=== PATIENT | male | born 1975 | race Caucasian/White ===

== ENCOUNTER 2017-09-12 20:13 | Inpatient (IN) | payer OTHER ==
[2017-09-12] MEDS: NS + KCL 20 MEQ 1,000 ML IV ×2 (03:45→22:08)
[2017-09-12] MEDS: DEXTROSE 50% 50 ML SYRINGE IV ×2 (20:43→23:13)
[2017-09-12 21:04] LABS: ADD MAN DIFF? NO
[2017-09-12 21:05] LABS: BASOPHILS % 0.1 % (0.0-2.0); EOSINOPHILS # 0.1 10^3/ul (0.0-0.5); EOSINOPHILS % 0.6 % (0.0-7.0); HEMATOCRIT 42.1 % (42.0-52.0); HEMOGLOBIN 14.4 g/dl (14.0-18.0); LYMPHOCYTES # 3.1 10^3/ul (0.8-2.9); LYMPHOCYTES % 36.7 % (15.0-51.0); MEAN CORPUSCULAR HEMOGLOBIN 28.2 pg (29.0-33.0); MEAN CORPUSCULAR HGB CONC 34.2 g/dl (32.0-37.0); MEAN CORPUSCULAR VOLUME 82.5 fl (82.0-101.0); MEAN PLATELET VOLUME 10.4 fl (7.4-10.4); MONOCYTE # 0.3 10^3/ul (0.3-0.9); MONOCYTES % 3.6 % (0.0-11.0); NEUTROPHIL # 4.9 10^3/ul (1.6-7.5); NEUTROPHILS % 58.8 % (39.0-77.0); PLATELET COUNT 170 10^3/UL (140-415); RED CELL DISTRIBUTION WIDTH 13.3 % (11.5-14.5)
[2017-09-12 21:05] LABS: WHITE BLOOD COUNT 8.4 10^3/ul (4.8-10.8)
[2017-09-12 21:13] LABS: ALANINE AMINOTRANSFERASE 37 IU/L (13-69); ALBUMIN 5.3 g/dl (3.3-4.9); ALKALINE PHOSPHATASE 109 IU/L (42-121); ANION GAP 18 (8-16); ASPARTATE AMINO TRANSFERASE 23 IU/L (15-46); BILIRUBIN,INDIRECT 0.2 mg/dl (0-1.1); BILIRUBIN,TOTAL 0.2 mg/dl (0.2-1.3); BLOOD UREA NITROGEN 15 mg/dl (7-20); CALCIUM 9.7 mg/dl (8.4-10.2); CARBON DIOXIDE 23 mmol/L (21-31); CHLORIDE 109 mmol/L (97-110); CREATININE 0.97 mg/dl (0.61-1.24); GLUCOSE 56 mg/dl (70-220); SODIUM 147 mmol/L (135-144); TOTAL PROTEIN 8.6 g/dl (6.1-8.1)
[2017-09-12] MEDS: HYDROmorphONE 1 MG/ML SYG IV (21:14)
[2017-09-12] MEDS: SOD CHLORIDE 0.9% 1,000 ML IV (21:14)
[2017-09-12] MEDS: ONDANSETRON 4 MG INJ IV (21:14)
[2017-09-12 21:16] LABS: POTASSIUM 2.9 mmol/L (3.5-5.1)
[2017-09-12 21:37] LABS: LIPASE 193 U/L (23-300)
[2017-09-12] MEDS: FENTAnyl 50 MCG/ML VIAL IV (23:08)
[2017-09-12 23:55] LABS: ETHANOL < 10.0 mg/dl
[2017-09-12] MEDS: DEXTROSE 10% 1,000 ML IV (23:59)
[2017-09-13 00:41] LABS: URINE PH (Dip) POC 5.5 (5.0-8.5)
[2017-09-13 00:41] LABS: URINE BLOOD (Dip) POC Trace-lysed (NEGATIVE); URINE KETONES (Dip) POC Negative (NEGATIVE); URINE LEUKOCYTE EST (Dip) POC Negative (NEGATIVE); URINE NITRITE (Dip) POC Negative (NEGATIVE); URINE TOTAL PROTEIN POC Negative (NEGATIVE)
[2017-09-13] MEDS: HYDROCODONE/APAP (5/325) TAB PO (01:00)
[2017-09-13 01:23] LABS: ADD UMIC YES; UR ASCORBIC ACID NEGATIVE (NEGATIVE); UR BILIRUBIN (Dip) NEGATIVE (NEGATIVE); UR BLOOD (Dip) 1+ mg/dL (NEGATIVE); UR CLARITY CLEAR (CLEAR); UR COLOR YELLOW (YELLOW); UR GLUCOSE (Dip) 2+ mg/dL (NEGATIVE); UR KETONES (Dip) NEGATIVE (NEGATIVE); UR LEUKOCYTE ESTERASE (Dip) NEGATIVE Leu/ul (NEGATIVE); UR MUCUS FEW /HPF (NONE SEEN); UR NITRITE (Dip) NEGATIVE (NEGATIVE); UR RBC 1 /HPF (0-5); UR TOTAL PROTEIN (Dip) NEGATIVE (NEGATIVE); UR UROBILINOGEN (Dip) NEGATIVE (NEGATIVE); UR WBC 1 /HPF (0-5)
[2017-09-13] MEDS: NS + KCL 20 MEQ 1,000 ML IV ×12 (01:30→23:30)
[2017-09-13] MEDS: AMLODIPINE 5 MG TAB PO ×2 (02:00→15:38)
[2017-09-13] MEDS ORDERED: ACETAMINOPHEN 325 MG TAB PO (02:00)
[2017-09-13] MEDS ORDERED: DIPHENHYDRAMINE 25 MG CAP PO (02:00)
[2017-09-13] MEDS ORDERED: OCTREOTIDE 50 MCG INJ SC (02:00)
[2017-09-13] MEDS ORDERED: ONDANSETRON 4 MG INJ IV (02:00)
[2017-09-13 02:06] LABS: AMPHETAMINE/METHAMPHETAMINE NEGATIVE (NEGATIVE); BARBITURATES NEGATIVE (NEGATIVE); BENZODIAZEPINES NEGATIVE (NEGATIVE); CANNABINOIDS NEGATIVE (NEGATIVE); COCAINE NEGATIVE (NEGATIVE); OPIATES POSITIVE (NEGATIVE)
[2017-09-13] MEDS ORDERED: OCTREOTIDE 100 MCG INJ SC (02:30)
[2017-09-13] MEDS: HYDROmorphONE 1 MG/ML SYG IV ×10 (02:51→23:16)
[2017-09-13] MEDS: OCTREOTIDE 100 MCG INJ SC ×3 (03:53→18:00)
[2017-09-13] MEDS: POTASSIUM CHLORIDE (SR) 20 MEQ TAB PO ×3 (03:53→06:00)
[2017-09-13] MEDS: SOD CHLORIDE 0.9% 1,000 ML IV (03:54)
[2017-09-13] MEDS: DEXTROSE 10% 1,000 ML IV ×5 (03:55→18:25)
[2017-09-13 05:59] LABS: ADD MAN DIFF? NO
[2017-09-13 06:10] LABS: ABNORMAL IP MESSAGE 1; BASOPHILS % 0.2 % (0.0-2.0); EOSINOPHILS % 0.5 % (0.0-7.0); HEMATOCRIT 38.2 % (42.0-52.0); HEMOGLOBIN 13.1 g/dl (14.0-18.0); LYMPHOCYTES % 24.7 % (15.0-51.0); MEAN CORPUSCULAR HGB CONC 34.3 g/dl (32.0-37.0); MEAN CORPUSCULAR VOLUME 84.5 fl (82.0-101.0); MEAN PLATELET VOLUME 10.7 fl (7.4-10.4); MONOCYTE # 0.3 10^3/ul (0.3-0.9); NEUTROPHIL # 2.7 10^3/ul (1.6-7.5); NEUTROPHILS % 67.4 % (39.0-77.0); PLATELET COUNT 85 10^3/UL (140-415); POSITIVE DIFF @See below; RED BLOOD COUNT 4.52 10^6/ul (4.70-6.10); RED CELL DISTRIBUTION WIDTH 13.3 % (11.5-14.5)
[2017-09-13 06:49] LABS: ALANINE AMINOTRANSFERASE 28 IU/L (13-69); ALBUMIN 3.2 g/dl (3.3-4.9); ALBUMIN/GLOBULIN RATIO 1.14; ALKALINE PHOSPHATASE 71 IU/L (42-121); ANION GAP 11 (8-16); ASPARTATE AMINO TRANSFERASE 13 IU/L (15-46); BILIRUBIN,INDIRECT 0.2 mg/dl (0-1.1); BILIRUBIN,TOTAL 0.2 mg/dl (0.2-1.3); BLOOD UREA NITROGEN 10 mg/dl (7-20); CALCIUM 8.5 mg/dl (8.4-10.2); CARBON DIOXIDE 24 mmol/L (21-31); CHLORIDE 112 mmol/L (97-110); CREATININE 0.81 mg/dl (0.61-1.24); GLUCOSE 85 mg/dl (70-220); SODIUM 143 mmol/L (135-144)
[2017-09-13] MEDS: ENOXAPARIN 40 MG/0.4 ML SYG SC (10:00)
[2017-09-13] MEDS ORDERED: LORAZEPAM 1 MG TAB PO (15:30)
[2017-09-13] MEDS ORDERED: POTASSIUM CHLORIDE 20 MEQ POWDER FOR ORAL SOLN PO ×3 (15:30)
[2017-09-13] MEDS: OXCARBAZEPINE 300 MG TAB PO (20:55)
[2017-09-13] MEDS: QUETIAPINE 100 MG TAB PO (20:55)
[2017-09-13] MEDS: ZOLPIDEM 5 MG TAB PO (23:16)
[2017-09-14] MEDS: NS + KCL 20 MEQ 1,000 ML IV ×4 (01:30→07:54)
[2017-09-14] MEDS: AMLODIPINE 5 MG TAB PO (01:33)
[2017-09-14] MEDS: HYDROmorphONE 1 MG/ML SYG IV ×3 (01:34→09:39)
[2017-09-14] MEDS: OCTREOTIDE 100 MCG INJ SC ×2 (02:00→09:43)
[2017-09-14] MEDS: DEXTROSE 10% 1,000 ML IV ×2 (03:08→10:00)
[2017-09-14] MEDS: INSULIN ASPART [NOVOLOG] 3 ML PEN SC (07:55)
[2017-09-14] MEDS ORDERED: GLUCOSE GEL 15 GRAM TUBE PO ×2 (08:00)
[2017-09-14] MEDS ORDERED: GLUCAGON 1 MG INJ IM (08:00)
[2017-09-14] MEDS ORDERED: DEXTROSE 50% 50 ML SYRINGE IV ×2 (08:00)
[2017-09-14] MEDS ORDERED: GLUCOSE GEL 15 GRAM TUBE BUCCAL (08:00)
[2017-09-14 08:38] LABS: ADD MAN DIFF? NO
[2017-09-14 08:49] LABS: WHITE BLOOD COUNT 2.6 10^3/ul (4.8-10.8)
[2017-09-14 08:49] LABS: ABNORMAL IP MESSAGE 1; BASOPHILS % 0.4 % (0.0-2.0); EOSINOPHILS # 0.1 10^3/ul (0.0-0.5); EOSINOPHILS % 1.9 % (0.0-7.0); HEMATOCRIT 36.1 % (42.0-52.0); HEMOGLOBIN 12.2 g/dl (14.0-18.0); LYMPHOCYTES # 0.6 10^3/ul (0.8-2.9); LYMPHOCYTES % 22.7 % (15.0-51.0); MEAN CORPUSCULAR HEMOGLOBIN 28.3 pg (29.0-33.0); MEAN CORPUSCULAR HGB CONC 33.8 g/dl (32.0-37.0); MEAN CORPUSCULAR VOLUME 83.8 fl (82.0-101.0); MONOCYTE # 0.2 10^3/ul (0.3-0.9); MONOCYTES % 8.3 % (0.0-11.0); NEUTROPHIL # 1.8 10^3/ul (1.6-7.5); NEUTROPHILS % 66.3 % (39.0-77.0); PLATELET COUNT 78 10^3/UL (140-415); POSITIVE DIFF @See below; RED BLOOD COUNT 4.31 10^6/ul (4.70-6.10); RED CELL DISTRIBUTION WIDTH 13.6 % (11.5-14.5)
[2017-09-14 09:25] LABS: ALANINE AMINOTRANSFERASE 30 IU/L (13-69); ALBUMIN 3.9 g/dl (3.3-4.9); ALBUMIN/GLOBULIN RATIO 1.39; ALKALINE PHOSPHATASE 81 IU/L (42-121); ANION GAP 14 (8-16); ASPARTATE AMINO TRANSFERASE 14 IU/L (15-46); BILIRUBIN,INDIRECT 0.2 mg/dl (0-1.1); BILIRUBIN,TOTAL 0.2 mg/dl (0.2-1.3); BLOOD UREA NITROGEN 7 mg/dl (7-20); CALCIUM 8.9 mg/dl (8.4-10.2); CARBON DIOXIDE 25 mmol/L (21-31); CHLORIDE 106 mmol/L (97-110); GLUCOSE 103 mg/dl (70-220); SODIUM 142 mmol/L (135-144); TOTAL PROTEIN 6.7 g/dl (6.1-8.1)
[2017-09-14] MEDS: INFLUENZA VIRUS VACCINE 0.5 ML SYG IM* (09:34)
== END 2017-09-14 11:53 | disposition home or self-care (01) | DRG 641 ==
LOC: E/R 20:13 → MS4 09-13 17:11
PROVIDERS: Hospitalist
DX: E83.51 Hypocalcemia (principal); I10 Essential (primary) hypertension; D37.8 Neoplasm of uncertain behavior of other specified digestive organs; E87.6 Hypokalemia; E86.0 Dehydration; R10.9 Unspecified abdominal pain; G89.29 Other chronic pain; F41.9 Anxiety disorder, unspecified
CPT/HCPCS: 36415; 80053; 80306; 80307; 81001; 81003; 82962; 83690; 85025; 90686; 96372; 96374; 96375; 96376; 99285-25

== ENCOUNTER 2018-03-08 16:55 | Inpatient (IN) | payer OTHER ==
[2018-03-08] MEDS ORDERED: DEXTROSE 50% 50 ML SYRINGE (17:04)
[2018-03-08 17:17] LABS: ADD MAN DIFF? NO; BASOPHILS % 0.2 % (0.0-2.0); EOSINOPHILS % 0.8 % (0.0-7.0); HEMATOCRIT 43.1 % (42.0-52.0); HEMOGLOBIN 14.4 g/dl (14.0-18.0); LYMPHOCYTES # 1.5 10^3/ul (0.8-2.9); MEAN CORPUSCULAR HEMOGLOBIN 27.1 pg (29.0-33.0); MEAN CORPUSCULAR HGB CONC 33.4 g/dl (32.0-37.0); MEAN CORPUSCULAR VOLUME 81.2 fl (82.0-101.0); MEAN PLATELET VOLUME 10.6 fl (7.4-10.4); MONOCYTE # 0.2 10^3/ul (0.3-0.9); MONOCYTES % 3.3 % (0.0-11.0); NEUTROPHIL # 3.2 10^3/ul (1.6-7.5); NEUTROPHILS % 65.5 % (39.0-77.0); PLATELET COUNT 143 10^3/UL (140-415); RED BLOOD COUNT 5.31 10^6/ul (4.70-6.10); RED CELL DISTRIBUTION WIDTH 13.7 % (11.5-14.5)
[2018-03-08 17:17] LABS: WHITE BLOOD COUNT 4.9 10^3/ul (4.8-10.8)
[2018-03-08] MEDS: DEXTROSE 50% 50 ML SYRINGE IV ×3 (17:17→19:03)
[2018-03-08 17:36] LABS: ANION GAP 12 (8-16); BLOOD UREA NITROGEN 17 mg/dl (7-20); CALCIUM 10.3 mg/dl (8.4-10.2); CARBON DIOXIDE 26 mmol/L (21-31); CHLORIDE 109 mmol/L (97-110); CREATININE 1.06 mg/dl (0.61-1.24); POTASSIUM 3.4 mmol/L (3.5-5.1); SODIUM 144 mmol/L (135-144)
[2018-03-08 17:41] LABS: GLUCOSE 35 mg/dl (70-220)
[2018-03-08] MEDS: DEXTROSE 5%-0.9% NACL 1,000 ML IV ×2 (17:56→18:39)
[2018-03-08] MEDS: DEXTROSE 10% 1,000 ML IV (19:03)
[2018-03-08] MEDS ORDERED: ONDANSETRON (ODT) 4 MG TAB ODT (19:24)
[2018-03-08] MEDS: OXYCODONE/ACETAMINOPHEN (5/325) TAB PO (19:29)
[2018-03-08] MEDS: ONDANSETRON 4 MG INJ IV (19:30)
[2018-03-08] MEDS: OCTREOTIDE 50 MCG INJ SC (19:38)
[2018-03-08] MEDS ORDERED: ONDANSETRON 4 MG INJ IV (20:00)
[2018-03-08] MEDS ORDERED: ACETAMINOPHEN 325 MG TAB PO ×2 (20:00→21:00)
[2018-03-08] MEDS: OCTREOTIDE SC (20:56)
[2018-03-08] MEDS ORDERED: DIPHENHYDRAMINE 50 MG CAP PO (21:30)
[2018-03-08] MEDS ORDERED: HYDROmorphONE 2 MG TAB PO (22:02)
[2018-03-08] MEDS ORDERED: GLUCAGON 1 MG INJ IM (22:30)
[2018-03-08] MEDS ORDERED: DEXTROSE 50% 50 ML SYRINGE IV (22:30)
[2018-03-08] MEDS ORDERED: GLUCOSE GEL 15 GRAM TUBE BUCCAL (22:30)
[2018-03-08] MEDS ORDERED: GLUCOSE GEL 15 GRAM TUBE PO ×2 (22:30)
[2018-03-08] MEDS: HYDROmorphONE 1 MG/ML SYG IV (22:32)
[2018-03-09] MEDS: QUETIAPINE 100 MG TAB PO ×2 (00:25→21:11)
[2018-03-09] MEDS: DEXTROSE 50% 50 ML SYRINGE IV (00:31)
[2018-03-09] MEDS: HYDROmorphONE 1 MG/ML SYG IV ×7 (01:10→21:11)
[2018-03-09] MEDS: OXCARBAZEPINE 300 MG TAB PO ×2 (02:10→21:11)
[2018-03-09] MEDS: OCTREOTIDE SC ×3 (02:12→13:00)
[2018-03-09] MEDS: PROPRANOLOL 20 MG TAB PO ×4 (02:12→21:00)
[2018-03-09] MEDS: DEXTROSE 10% 1,000 ML IV ×2 (02:51→12:24)
[2018-03-09 05:49] LABS: AMPHETAMINE/METHAMPHETAMINE Negative (NEGATIVE); BARBITURATES Negative (NEGATIVE); BENZODIAZEPINES Negative (NEGATIVE); CANNABINOIDS Negative (NEGATIVE); COCAINE Negative (NEGATIVE); OPIATES Positive (NEGATIVE)
[2018-03-09 05:50] LABS: ADD MAN DIFF? NO
[2018-03-09 06:00] LABS: WHITE BLOOD COUNT 3.4 10^3/ul (4.8-10.8)
[2018-03-09 06:00] LABS: BASOPHILS % 0.3 % (0.0-2.0); EOSINOPHILS % 1.2 % (0.0-7.0); HEMATOCRIT 36.5 % (42.0-52.0); HEMOGLOBIN 12.1 g/dl (14.0-18.0); LYMPHOCYTES # 0.9 10^3/ul (0.8-2.9); LYMPHOCYTES % 26.9 % (15.0-51.0); MEAN CORPUSCULAR HEMOGLOBIN 27.8 pg (29.0-33.0); MEAN CORPUSCULAR HGB CONC 33.2 g/dl (32.0-37.0); MEAN CORPUSCULAR VOLUME 83.7 fl (82.0-101.0); MEAN PLATELET VOLUME 10.7 fl (7.4-10.4); MONOCYTE # 0.3 10^3/ul (0.3-0.9); MONOCYTES % 9.5 % (0.0-11.0); NEUTROPHIL # 2.1 10^3/ul (1.6-7.5); NEUTROPHILS % 61.8 % (39.0-77.0); PLATELET COUNT 104 10^3/UL (140-415); RED BLOOD COUNT 4.36 10^6/ul (4.70-6.10); RED CELL DISTRIBUTION WIDTH 13.6 % (11.5-14.5)
[2018-03-09 06:35] LABS: ALANINE AMINOTRANSFERASE 91 IU/L (13-69); ALBUMIN 3.6 g/dl (3.3-4.9); ALBUMIN/GLOBULIN RATIO 1.28; ALKALINE PHOSPHATASE 130 IU/L (42-121); ANION GAP 16 (8-16); ASPARTATE AMINO TRANSFERASE 116 IU/L (15-46); BILIRUBIN,INDIRECT 0.3 mg/dl (0-1.1); BILIRUBIN,TOTAL 0.3 mg/dl (0.2-1.3); BLOOD UREA NITROGEN 13 mg/dl (7-20); CALCIUM 8.8 mg/dl (8.4-10.2); CARBON DIOXIDE 25 mmol/L (21-31); CHLORIDE 103 mmol/L (97-110); CREATININE 0.77 mg/dl (0.61-1.24); GLUCOSE 143 mg/dl (70-220); POTASSIUM 3.8 mmol/L (3.5-5.1); SODIUM 140 mmol/L (135-144); TOTAL PROTEIN 6.4 g/dl (6.1-8.1)
[2018-03-09] MEDS: ACCU-CHEK XX ×14 (10:59→23:15)
[2018-03-09] MEDS: ONDANSETRON 4 MG INJ IV ×2 (12:12→21:11)
[2018-03-09] MEDS: OCTREOTIDE 100 MCG INJ SC (22:26)
[2018-03-10] MEDS: ACCU-CHEK XX ×12 (00:12→21:16)
[2018-03-10] MEDS: HYDROmorphONE 1 MG/ML SYG IV ×8 (00:46→21:17)
[2018-03-10] MEDS: ONDANSETRON 4 MG INJ IV ×2 (05:49→14:03)
[2018-03-10] MEDS: OCTREOTIDE 100 MCG INJ SC ×3 (06:12→22:00)
[2018-03-10] MEDS: DEXTROSE 10% 1,000 ML IV (07:11)
[2018-03-10] MEDS: PROPRANOLOL 20 MG TAB PO ×2 (08:22→21:00)
[2018-03-10 10:18] LABS: ADD MAN DIFF? NO
[2018-03-10 10:23] LABS: BASOPHILS % 0.3 % (0.0-2.0); EOSINOPHILS # 0.1 10^3/ul (0.0-0.5); EOSINOPHILS % 2.1 % (0.0-7.0); HEMATOCRIT 40.7 % (42.0-52.0); LYMPHOCYTES % 35.3 % (15.0-51.0); MEAN CORPUSCULAR HGB CONC 31.9 g/dl (32.0-37.0); MEAN CORPUSCULAR VOLUME 84.6 fl (82.0-101.0); MEAN PLATELET VOLUME 10.9 fl (7.4-10.4); MONOCYTE # 0.3 10^3/ul (0.3-0.9); MONOCYTES % 8.9 % (0.0-11.0); NEUTROPHIL # 1.6 10^3/ul (1.6-7.5); NEUTROPHILS % 53.1 % (39.0-77.0); PLATELET COUNT 100 10^3/UL (140-415); RED BLOOD COUNT 4.81 10^6/ul (4.70-6.10); RED CELL DISTRIBUTION WIDTH 13.9 % (11.5-14.5)
[2018-03-10 10:23] LABS: WHITE BLOOD COUNT 2.9 10^3/ul (4.8-10.8)
[2018-03-10 10:43] LABS: ANION GAP 12 (8-16); BLOOD UREA NITROGEN 13 mg/dl (7-20); CALCIUM 8.9 mg/dl (8.4-10.2); CARBON DIOXIDE 28 mmol/L (21-31); CHLORIDE 108 mmol/L (97-110); CREATININE 0.87 mg/dl (0.61-1.24); GLUCOSE 112 mg/dl (70-220); POTASSIUM 4.3 mmol/L (3.5-5.1); SODIUM 144 mmol/L (135-144)
[2018-03-10 12:11] LABS: C-PEPTIDE 1.09 ng/mL (0.80-3.85)
[2018-03-10] MEDS: OXCARBAZEPINE 300 MG TAB PO (21:15)
[2018-03-10] MEDS: QUETIAPINE 100 MG TAB PO (21:16)
[2018-03-11] MEDS: HYDROmorphONE 1 MG/ML SYG IV ×4 (00:25→10:30)
[2018-03-11] MEDS: ACCU-CHEK XX ×3 (01:55→09:00)
[2018-03-11] MEDS: OCTREOTIDE 100 MCG INJ SC (06:00)
[2018-03-11] MEDS: PROPRANOLOL 20 MG TAB PO (09:00)
== END 2018-03-11 11:23 | disposition home or self-care (01) | DRG 641 ==
LOC: E/R 16:55 → MS4 03-10 14:51 → ICU 19:51
PROVIDERS: Internal Medicine
DX: E16.2 Hypoglycemia, unspecified (principal); D13.7 Benign neoplasm of endocrine pancreas; F43.10 Post-traumatic stress disorder, unspecified; F41.9 Anxiety disorder, unspecified; F17.210 Nicotine dependence, cigarettes, uncomplicated; N20.0 Calculus of kidney; R10.13 Epigastric pain; Z90.411 Acquired partial absence of pancreas; Z90.49 Acquired absence of other specified parts of digestive tract
CPT/HCPCS: 36415; 80048; 80053; 80307; 82962; 84681; 85025; 87081; 93005; 96372; 96374; 96375; 96376; 99291-25

== ENCOUNTER 2018-04-16 15:31 | Inpatient (IN) | payer OTHER ==
[2018-04-16] MEDS ORDERED: DEXTROSE 5%-0.9% NACL 1,000 ML IV (15:43)
[2018-04-16] MEDS ORDERED: DEXTROSE 50% 50 ML SYRINGE (15:45)
[2018-04-16] MEDS: DEXTROSE 50% 50 ML SYRINGE IV ×3 (15:47→22:38)
[2018-04-16 15:57] LABS: ADD MAN DIFF? NO
[2018-04-16 16:01] LABS: WHITE BLOOD COUNT 12.7 10^3/ul (4.8-10.8)
[2018-04-16 16:01] LABS: BASOPHILS % 0.2 % (0.0-2.0); EOSINOPHILS # 0.1 10^3/ul (0.0-0.5); EOSINOPHILS % 0.4 % (0.0-7.0); HEMATOCRIT 44.8 % (42.0-52.0); HEMOGLOBIN 15.1 g/dl (14.0-18.0); LYMPHOCYTES # 3.2 10^3/ul (0.8-2.9); LYMPHOCYTES % 25.5 % (15.0-51.0); MEAN CORPUSCULAR HEMOGLOBIN 27.6 pg (29.0-33.0); MEAN CORPUSCULAR HGB CONC 33.7 g/dl (32.0-37.0); MEAN CORPUSCULAR VOLUME 81.8 fl (82.0-101.0); MEAN PLATELET VOLUME 10.1 fl (7.4-10.4); MONOCYTE # 0.2 10^3/ul (0.3-0.9); MONOCYTES % 1.9 % (0.0-11.0); NEUTROPHIL # 9.1 10^3/ul (1.6-7.5); NEUTROPHILS % 71.8 % (39.0-77.0); PLATELET COUNT 182 10^3/UL (140-415); RED BLOOD COUNT 5.48 10^6/ul (4.70-6.10); RED CELL DISTRIBUTION WIDTH 13.4 % (11.5-14.5)
[2018-04-16] MEDS: ONDANSETRON 4 MG INJ IV ×2 (16:01→19:17)
[2018-04-16] MEDS: DEXTROSE 10% 1,000 ML IV (16:01)
[2018-04-16 16:17] LABS: ALANINE AMINOTRANSFERASE 46 IU/L (13-69); ALBUMIN 5.3 g/dl (3.3-4.9); ALBUMIN/GLOBULIN RATIO 1.35; ALKALINE PHOSPHATASE 202 IU/L (42-121); ANION GAP 16 (8-16); ASPARTATE AMINO TRANSFERASE 29 IU/L (15-46); BILIRUBIN,INDIRECT 0.5 mg/dl (0-1.1); BILIRUBIN,TOTAL 0.5 mg/dl (0.2-1.3); BLOOD UREA NITROGEN 14 mg/dl (7-20); CALCIUM 10.7 mg/dl (8.4-10.2); CARBON DIOXIDE 24 mmol/L (21-31); CHLORIDE 109 mmol/L (97-110); CREATININE 1.08 mg/dl (0.61-1.24); LIPASE 148 U/L (23-300); SODIUM 146 mmol/L (135-144); TOTAL PROTEIN 9.2 g/dl (6.1-8.1)
[2018-04-16] MEDS: OCTREOTIDE 50 MCG INJ SC (16:22)
[2018-04-16 16:25] LABS: GLUCOSE 48 mg/dl (70-220)
[2018-04-16 16:29] LABS: TROPONIN-I < 0.010 ng/ml (0.000-0.120)
[2018-04-16] MEDS: DIPHENHYDRAMINE 50 MG CAP PO (16:58)
[2018-04-16] MEDS: HYDROmorphONE 1 MG/ML SYG IV ×2 (16:58→19:18)
[2018-04-16] MEDS: POTASSIUM CHLORIDE 100 ML IVPB (17:24)
[2018-04-16] MEDS ORDERED: NACL 0.9% 3 ML SYG IV (19:00)
[2018-04-16] MEDS ORDERED: DIPHENHYDRAMINE 50 MG CAP PO (19:00)
[2018-04-16] MEDS ORDERED: DOCUSATE SODIUM 100 MG CAP PO (19:00)
[2018-04-16] MEDS ORDERED: BISACODYL 10 MG SUPP PR (19:00)
[2018-04-16] MEDS ORDERED: MAGNESIUM HYDROXIDE 30ML CUP PO (19:00)
[2018-04-16] MEDS ORDERED: ACETAMINOPHEN 325 MG TAB PO (19:00)
[2018-04-16] MEDS ORDERED: HYDROmorphONE 4 MG TAB PO (19:30)
[2018-04-16] MEDS: OCTREOTIDE SC (19:49)
[2018-04-16] MEDS: POTASSIUM CHLORIDE 20 MEQ in DEXTROSE 10% 1,000 ML IV (20:16)
[2018-04-16] MEDS ORDERED: OCTREOTIDE 50 MCG INJ SC (21:00)
[2018-04-16] MEDS: FAMOTIDINE 20 MG TAB PO (21:00)
[2018-04-16] MEDS: OXCARBAZEPINE 300 MG TAB PO (21:07)
[2018-04-16] MEDS: ZOLPIDEM 5 MG TAB PO (21:07)
[2018-04-16] MEDS: QUETIAPINE 100 MG TAB PO (21:07)
[2018-04-16] MEDS: PROPRANOLOL 20 MG TAB PO (21:09)
[2018-04-16] MEDS: OXYCODONE/ACETAMINOPHEN (10/325) TAB PO (22:29)
[2018-04-17] MEDS: ONDANSETRON 4 MG INJ IV ×2 (00:50→08:01)
[2018-04-17] MEDS: HYDROmorphONE 1 MG/ML SYG IV (00:50)
[2018-04-17] MEDS: OCTREOTIDE SC (04:00)
[2018-04-17] MEDS: POTASSIUM CHLORIDE 20 MEQ in DEXTROSE 10% 1,000 ML IV (05:09)
[2018-04-17] MEDS: HYDROmorphONE 2 MG/ML SYG IV (05:30)
[2018-04-17] MEDS: PANTOPRAZOLE 40 MG INJ IV ×2 (05:51→10:15)
[2018-04-17 06:37] LABS: ADD MAN DIFF? NO
[2018-04-17 06:46] LABS: WHITE BLOOD COUNT 3.4 10^3/ul (4.8-10.8)
[2018-04-17 06:46] LABS: ABNORMAL IP MESSAGE 1; BASOPHILS % 0.3 % (0.0-2.0); EOSINOPHILS # 0.1 10^3/ul (0.0-0.5); EOSINOPHILS % 1.8 % (0.0-7.0); LYMPHOCYTES % 27.9 % (15.0-51.0); MEAN CORPUSCULAR HEMOGLOBIN 27.3 pg (29.0-33.0); MEAN CORPUSCULAR HGB CONC 32.5 g/dl (32.0-37.0); MEAN CORPUSCULAR VOLUME 83.9 fl (82.0-101.0); MONOCYTE # 0.3 10^3/ul (0.3-0.9); MONOCYTES % 8.5 % (0.0-11.0); NEUTROPHIL # 2.1 10^3/ul (1.6-7.5); NEUTROPHILS % 61.2 % (39.0-77.0); PLATELET COUNT 95 10^3/UL (140-415); POSITIVE DIFF @See below; RED BLOOD COUNT 4.77 10^6/ul (4.70-6.10); RED CELL DISTRIBUTION WIDTH 13.8 % (11.5-14.5)
[2018-04-17 07:09] LABS: ANION GAP 11 (8-16); BLOOD UREA NITROGEN 10 mg/dl (7-20); CALCIUM 8.9 mg/dl (8.4-10.2); CARBON DIOXIDE 24 mmol/L (21-31); CHLORIDE 107 mmol/L (97-110); CREATININE 0.86 mg/dl (0.61-1.24); GLUCOSE 192 mg/dl (70-220); MAGNESIUM 1.9 mg/dl (1.7-2.5); POTASSIUM 4.1 mmol/L (3.5-5.1); SODIUM 138 mmol/L (135-144)
[2018-04-17] MEDS: FAMOTIDINE 20 MG TAB PO (08:07)
[2018-04-17] MEDS: NICOTINE (21 MG/24 HR) PATCH TRANSDERM (08:08)
[2018-04-17] MEDS: OXYCODONE/ACETAMINOPHEN (10/325) TAB PO (08:17)
[2018-04-17] MEDS ORDERED: LIDOCAINE/MYLANTA 40 ML BTL PO (11:00)
== END 2018-04-17 11:50 | disposition left against medical advice (07) | DRG 641 ==
LOC: ICU 18:24 → E/R 15:31
PROVIDERS: Internal Medicine
DX: E16.2 Hypoglycemia, unspecified (principal); K92.0 Hematemesis; R10.13 Epigastric pain; G89.29 Other chronic pain; N20.0 Calculus of kidney; E87.6 Hypokalemia; F17.210 Nicotine dependence, cigarettes, uncomplicated; F41.9 Anxiety disorder, unspecified; F43.10 Post-traumatic stress disorder, unspecified; Z90.410 Acquired total absence of pancreas; Z90.49 Acquired absence of other specified parts of digestive tract
CPT/HCPCS: 36415; 71045; 74176; 80048; 80053; 82962; 83690; 83735; 84484; 85025; 87081; 96372; 96374; 96375; 99285-25

== ENCOUNTER 2019-02-03 21:10 | Inpatient (IN) | payer OTHER ==
[2019-02-03] MEDS: DEXTROSE 50% 50 ML SYRINGE IV (21:50)
[2019-02-03] MEDS: DEXTROSE 10% 1,000 ML IV ×2 (22:23→22:42)
[2019-02-03 23:15] LABS: ADD MAN DIFF? NO
[2019-02-03 23:21] LABS: BASOPHILS % 0.1 % (0.0-2.0); EOSINOPHILS # 0.1 10^3/ul (0.0-0.5); EOSINOPHILS % 0.7 % (0.0-7.0); HEMATOCRIT 39.5 % (42.0-52.0); HEMOGLOBIN 13.2 g/dl (14.0-18.0); LYMPHOCYTES # 0.9 10^3/ul (0.8-2.9); LYMPHOCYTES % 12.2 % (15.0-51.0); MEAN CORPUSCULAR HGB CONC 33.4 g/dl (32.0-37.0); MEAN CORPUSCULAR VOLUME 83.7 fl (82.0-101.0); MEAN PLATELET VOLUME 10.8 fl (7.4-10.4); MONOCYTE # 0.4 10^3/ul (0.3-0.9); MONOCYTES % 5.5 % (0.0-11.0); NEUTROPHIL # 5.8 10^3/ul (1.6-7.5); NEUTROPHILS % 81.2 % (39.0-77.0); PLATELET COUNT 124 10^3/UL (140-415); RED BLOOD COUNT 4.72 10^6/ul (4.70-6.10)
[2019-02-03 23:21] LABS: WHITE BLOOD COUNT 7.1 10^3/ul (4.8-10.8)
[2019-02-03 23:40] LABS: ANION GAP 7 (5-13); BLOOD UREA NITROGEN 14 mg/dl (7-20); CALCIUM 9.6 mg/dl (8.4-10.2); CARBON DIOXIDE 25 mmol/L (21-31); CHLORIDE 110 mmol/L (97-110); CREATININE 0.84 mg/dl (0.61-1.24); Estimated GFR > 60 mL/min (>60); GLUCOSE 84 mg/dl (70-220); POTASSIUM 3.1 mmol/L (3.5-5.1); SODIUM 142 mmol/L (135-144)
[2019-02-04] MEDS: ONDANSETRON 4 MG INJ IV ×2 (00:12→03:55)
[2019-02-04] MEDS: HYDROmorphONE 1 MG/ML SYG IV ×9 (00:12→22:33)
[2019-02-04] MEDS: OCTREOTIDE 50 MCG INJ SC ×2 (00:54→04:10)
[2019-02-04] MEDS: DEXTROSE 50% 50 ML SYRINGE IV ×4 (03:26→10:01)
[2019-02-04] MEDS: SODIUM CHLORIDE 23.4% 154 MEQ in DEXTROSE 10% 1,000 ML IV (04:00)
[2019-02-04] MEDS ORDERED: DEXTROSE 10% 1,000 ML IV (04:30)
[2019-02-04] MEDS: DEXTROSE 10% 1,000 ML IV ×5 (04:30→20:09)
[2019-02-04] MEDS ORDERED: OCTREOTIDE 100 MCG INJ SC (10:00)
[2019-02-04] MEDS: ACCU-CHEK XX ×4 (10:02→22:37)
[2019-02-04] MEDS: PROPRANOLOL 20 MG TAB PO ×2 (10:30→20:06)
[2019-02-04] MEDS: OCTREOTIDE 100 MCG INJ SC ×2 (12:00→22:00)
[2019-02-04] MEDS: QUETIAPINE 100 MG TAB PO (20:05)
[2019-02-04] MEDS: OXCARBAZEPINE 300 MG TAB PO (20:06)
[2019-02-04] MEDS: DIAZOXIDE (50 MG/ML PO SYG) PO (22:00)
[2019-02-04] MEDS: ZOLPIDEM 5 MG TAB PO (22:32)
[2019-02-05] MEDS: DEXTROSE 10% 1,000 ML IV ×6 (01:33→19:58)
[2019-02-05] MEDS: HYDROmorphONE 1 MG/ML SYG IV ×11 (01:34→22:57)
[2019-02-05] MEDS: ACCU-CHEK XX ×6 (02:00→22:25)
[2019-02-05] MEDS: OCTREOTIDE 100 MCG INJ SC ×3 (06:00→21:11)
[2019-02-05] MEDS: DIAZOXIDE (50 MG/ML PO SYG) PO ×3 (06:00→22:00)
[2019-02-05] MEDS: PROPRANOLOL 20 MG TAB PO ×2 (08:32→21:01)
[2019-02-05] MEDS: ONDANSETRON 4 MG INJ IV ×2 (10:41→21:11)
[2019-02-05] MEDS: DEXTROSE 50% 50 ML SYRINGE IV ×3 (11:21→22:17)
[2019-02-05 13:43] LABS: GLUCOSE 57 mg/dl (70-220)
[2019-02-05] MEDS ORDERED: LORAZEPAM 2 MG INJ IV (14:30)
[2019-02-05] MEDS: QUETIAPINE 100 MG TAB PO (21:01)
[2019-02-05] MEDS: OXCARBAZEPINE 300 MG TAB PO (21:02)
[2019-02-05] MEDS: ZOLPIDEM 5 MG TAB PO (22:21)
[2019-02-06] MEDS: DEXTROSE 50% 50 ML SYRINGE IV ×5 (00:05→16:49)
[2019-02-06] MEDS: HYDROmorphONE 1 MG/ML SYG IV ×9 (01:03→22:14)
[2019-02-06] MEDS: ACCU-CHEK XX ×6 (02:00→21:34)
[2019-02-06] MEDS: DEXTROSE 10% 1,000 ML IV ×6 (02:50→23:15)
[2019-02-06] MEDS: DIAZOXIDE (50 MG/ML PO SYG) PO ×3 (06:00→21:34)
[2019-02-06] MEDS: PROPRANOLOL 20 MG TAB PO ×2 (09:23→20:05)
[2019-02-06] MEDS: OCTREOTIDE 100 MCG INJ SC ×3 (09:24→21:34)
[2019-02-06] MEDS: ONDANSETRON 4 MG INJ IV (09:34)
[2019-02-06 14:26] LABS: C-PEPTIDE 0.16 ng/mL (0.80-3.85)
[2019-02-06] MEDS: OXCARBAZEPINE 300 MG TAB PO (20:02)
[2019-02-06] MEDS: QUETIAPINE 100 MG TAB PO (20:02)
[2019-02-06] MEDS: ZOLPIDEM 5 MG TAB PO (22:14)
[2019-02-07] MEDS: HYDROmorphONE 1 MG/ML SYG IV ×7 (00:15→12:39)
[2019-02-07] MEDS: ACCU-CHEK XX ×4 (02:31→14:38)
[2019-02-07] MEDS: DEXTROSE 10% 1,000 ML IV ×4 (03:58→14:45)
[2019-02-07] MEDS: DIAZOXIDE (50 MG/ML PO SYG) PO ×2 (06:00→14:00)
[2019-02-07] MEDS: ONDANSETRON 4 MG INJ IV ×2 (06:08→08:35)
[2019-02-07] MEDS: OCTREOTIDE 100 MCG INJ SC ×2 (06:08→14:41)
[2019-02-07] MEDS: PROPRANOLOL 20 MG TAB PO (08:35)
== END 2019-02-07 16:10 | disposition left against medical advice (07) | DRG 641 ==
LOC: E/R 21:10 → 6WM 02-04 00:06
PROVIDERS: Internal Medicine
DX: E16.2 Hypoglycemia, unspecified (principal); F11.20 Opioid dependence, uncomplicated; D37.8 Neoplasm of uncertain behavior of other specified digestive organs; G89.4 Chronic pain syndrome; F41.9 Anxiety disorder, unspecified; Z72.0 Tobacco use; Z91.14 Patient's other noncompliance with medication regimen; Z76.5 Malingerer [conscious simulation]
CPT/HCPCS: 72195; 72197; 74181; 74183; 80048; 82947; 82962; 83525; 84681; 85025; 96374; 96375; 99285-25; G0378

== ENCOUNTER 2019-04-04 19:21 | Inpatient (IN) | payer OTHER ==
[2019-04-04] MEDS: GLUCAGON 1 MG INJ IM (19:48)
[2019-04-04] MEDS: DEXTROSE 50% 50 ML SYRINGE IV ×3 (19:52→22:19)
[2019-04-04] MEDS: DEXTROSE 10% 1,000 ML IV ×2 (19:53→22:16)
[2019-04-04 19:59] LABS: ADD MAN DIFF? NO
[2019-04-04 20:02] LABS: WHITE BLOOD COUNT 7.8 10^3/ul (4.8-10.8)
[2019-04-04 20:02] LABS: BASOPHILS % 0.1 % (0.0-2.0); EOSINOPHILS % 0.5 % (0.0-7.0); HEMATOCRIT 39.6 % (42.0-52.0); HEMOGLOBIN 13.3 g/dl (14.0-18.0); LYMPHOCYTES # 2.6 10^3/ul (0.8-2.9); LYMPHOCYTES % 32.7 % (15.0-51.0); MEAN CORPUSCULAR HEMOGLOBIN 28.2 pg (29.0-33.0); MEAN CORPUSCULAR HGB CONC 33.6 g/dl (32.0-37.0); MEAN CORPUSCULAR VOLUME 83.9 fl (82.0-101.0); MEAN PLATELET VOLUME 10.4 fl (7.4-10.4); MONOCYTE # 0.2 10^3/ul (0.3-0.9); MONOCYTES % 2.6 % (0.0-11.0); NEUTROPHILS % 63.8 % (39.0-77.0); PLATELET COUNT 198 10^3/UL (140-415); RED BLOOD COUNT 4.72 10^6/ul (4.70-6.10)
[2019-04-04 20:20] LABS: ALANINE AMINOTRANSFERASE 107 IU/L (13-69); ALBUMIN 4.4 g/dl (3.3-4.9); ALBUMIN/GLOBULIN RATIO 1.41; ALKALINE PHOSPHATASE 405 IU/L (42-121); ANION GAP 10 (5-13); ASPARTATE AMINO TRANSFERASE 103 IU/L (15-46); BILIRUBIN,INDIRECT 0.5 mg/dl (0-1.1); BILIRUBIN,TOTAL 0.5 mg/dl (0.2-1.3); BLOOD UREA NITROGEN 17 mg/dl (7-20); CALCIUM 9.8 mg/dl (8.4-10.2); CARBON DIOXIDE 27 mmol/L (21-31); CHLORIDE 108 mmol/L (97-110); CREATININE 1.02 mg/dl (0.61-1.24); Estimated GFR > 60 mL/min (>60); GLUCOSE 296 mg/dl (70-220); LIPASE 391 U/L (23-300); POTASSIUM 3.1 mmol/L (3.5-5.1); SODIUM 145 mmol/L (135-144); TOTAL PROTEIN 7.5 g/dl (6.1-8.1)
[2019-04-04] MEDS: HYDROmorphONE 1 MG/ML SYG IV (21:01)
[2019-04-04] MEDS: ONDANSETRON 4 MG INJ IV (21:01)
[2019-04-04] MEDS: MAGNESIUM SULFATE 2 GM/50 ML 50 ML IVPB (21:32)
[2019-04-04] MEDS: POTASSIUM CHLORIDE (SR) 20 MEQ TAB PO (21:32)
[2019-04-04] MEDS: POTASSIUM CHLORIDE 100 ML IVPB (22:18)
[2019-04-04] MEDS: SOD CHLORIDE 0.9% 100 ML (23:29)
[2019-04-04] MEDS: HYDROmorphONE 0.5 MG/0.5 ML SYG IV (23:42)
[2019-04-04] MEDS: IOHEXOL 300MG/ML 150 ML BTL (23:45)
[2019-04-05] MEDS: DEXTROSE 10% 1,000 ML IV ×6 (00:18→18:14)
[2019-04-05] MEDS: POTASSIUM CHLORIDE 100 ML IVPB (00:18)
[2019-04-05] MEDS: ACCU-CHEK XX ×18 (01:00→18:00)
[2019-04-05] MEDS ORDERED: OCTREOTIDE 50 MCG INJ SC (01:00)
[2019-04-05] MEDS ORDERED: DEXTROSE 10% 250 ML IV (01:00)
[2019-04-05] MEDS: OCTREOTIDE 100 MCG INJ SC ×3 (01:00→17:00)
[2019-04-05] MEDS: ACETAMINOPHEN 1000MG/100ML IV 100 ML IVPB (01:00)
[2019-04-05] MEDS: ONDANSETRON 4 MG INJ IV ×2 (01:02→04:34)
[2019-04-05] MEDS: HYDROmorphONE 1 MG/ML SYG IV ×4 (01:02→12:45)
[2019-04-05] MEDS: OXYCODONE/ACETAMINOPHEN (5/325) TAB PO ×3 (03:14→16:00)
[2019-04-05] MEDS ORDERED: ZOLPIDEM 5 MG TAB PO (04:30)
[2019-04-05 05:36] LABS: ADD MAN DIFF? NO
[2019-04-05 05:41] LABS: BASOPHILS % 0.2 % (0.0-2.0); EOSINOPHILS % 0.6 % (0.0-7.0); HEMATOCRIT 36.9 % (42.0-52.0); HEMOGLOBIN 12.6 g/dl (14.0-18.0); LYMPHOCYTES # 0.9 10^3/ul (0.8-2.9); LYMPHOCYTES % 18.6 % (15.0-51.0); MEAN CORPUSCULAR HEMOGLOBIN 28.1 pg (29.0-33.0); MEAN CORPUSCULAR HGB CONC 34.1 g/dl (32.0-37.0); MEAN CORPUSCULAR VOLUME 82.2 fl (82.0-101.0); MEAN PLATELET VOLUME 11.2 fl (7.4-10.4); MONOCYTE # 0.4 10^3/ul (0.3-0.9); MONOCYTES % 8.8 % (0.0-11.0); NEUTROPHIL # 3.6 10^3/ul (1.6-7.5); NEUTROPHILS % 71.6 % (39.0-77.0); PLATELET COUNT 115 10^3/UL (140-415); RED BLOOD COUNT 4.49 10^6/ul (4.70-6.10); RED CELL DISTRIBUTION WIDTH 12.6 % (11.5-14.5)
[2019-04-05 06:02] LABS: ANION GAP 6 (5-13); BLOOD UREA NITROGEN 11 mg/dl (7-20); CARBON DIOXIDE 25 mmol/L (21-31); CHLORIDE 107 mmol/L (97-110); CREATININE 0.68 mg/dl (0.61-1.24); Estimated GFR > 60 mL/min (>60); GLUCOSE 182 mg/dl (70-220); POTASSIUM 3.9 mmol/L (3.5-5.1); SODIUM 138 mmol/L (135-144)
[2019-04-05 06:09] LABS: LIPASE 262 U/L (23-300)
[2019-04-05] MEDS: oxyCODONE (CR) 20 MG TAB [oxyCONTIN] PO ×2 (07:00→17:13)
[2019-04-05] MEDS: PROPRANOLOL 20 MG TAB PO (11:46)
[2019-04-05] MEDS: METHYLPREDNISOLONE 125 MG INJ IV (15:09)
[2019-04-05] MEDS: DIAZOXIDE (50 MG/ML PO SYG) PO (17:14)
[2019-04-05] MEDS: ACARBOSE 50 MG TAB PO (17:26)
[2019-04-05] MEDS ORDERED: QUETIAPINE 100 MG TAB PO (21:00)
[2019-04-05] MEDS ORDERED: ATORVASTATIN 20 MG TAB PO (21:00)
== END 2019-04-05 18:37 | disposition left against medical advice (07) | DRG 644 ==
LOC: ICU 21:24 → E/R 19:21
PROVIDERS: Internal Medicine
DX: E16.0 Drug-induced hypoglycemia without coma (principal); F11.20 Opioid dependence, uncomplicated; D13.7 Benign neoplasm of endocrine pancreas; F41.9 Anxiety disorder, unspecified; F32.9 Major depressive disorder, single episode, unspecified; F17.210 Nicotine dependence, cigarettes, uncomplicated; R10.13 Epigastric pain; E87.6 Hypokalemia; J45.909 Unspecified asthma, uncomplicated; Z76.5 Malingerer [conscious simulation]
CPT/HCPCS: 36415; 74176; 80048; 80053; 82962; 83690; 85025; 96374; 96375; 99285-25